=== PATIENT | female | born 1965 | race Caucasian/White ===

== ENCOUNTER 2020-02-19 15:21 | Emergency (ER) | payer BC ==
[~2020-02-19] VITALS: Ht 160 cm; Wt 78.0 kg
--- NOTE | 2020-02-19 15:40 | NUR ---
PATIENT WHEELED BACK FROM TRIAGE WITH CHIEF C/O COUGH X1 WEEK. PATIENT STATES SHE'S BEEN COUGHING AND SOB, DID NOT GO TO WORK THE LAST 2 DAYS. PATIENT WAS SEEN AT URGENT CARE TODAY, CHEST XRAY SHOWED PNEUMONIA, AND O2 SATURATION WAS <90% ON RA. CLAUDINE CINTRON, PATIENT IS 96% ON RA AT THIS TIME, CALL LIGHT WITHIN REACH.
[2020-02-19] MEDS ORDERED: CEFTRIAXONE PMX 1GM/50ML 50 ML IVPB ONE (16:30)
[2020-02-19] MEDS ORDERED: ACETAMINOPHEN 500 MG TABLET PO ONE (16:30)
[2020-02-19] MEDS ORDERED: AZITHROMYCIN 500 MG in SODIUM CHLORIDE 0.9% 250 ML IV ONE (16:30)
[2020-02-19] MEDS ORDERED: SODIUM CHLORIDE 0.9% 1,000ML IVBOLUS ONE (16:30)
[2020-02-19] MEDS ORDERED: ONDANSETRON 2MG/ML, 2ML IVPush ONE (16:30)
[2020-02-19] MEDS ORDERED: ONDANSETRON 2MG/ML, 2ML ONE (16:36)
[2020-02-19] MEDS ORDERED: ACETAMINOPHEN 500 MG TABLET ONE (16:36)
[2020-02-19] MEDS ORDERED: CEFTRIAXONE PMX 1GM/50ML 50 ML ONE (16:36)
[2020-02-19 16:39] LABS: BASOPHILS % (AUTO) 1 % (0-1); EOSINOPHILS % (AUTO) 0 % (1-7); LYMPHOCYTES % (AUTO) 19 % (22-44); MEAN CORPUSCULAR HEMOGLOBIN 28.6 pg (27.0-34.8); MEAN CORPUSCULAR HGB CONC 33.5 g/dL (32.4-35.8); MEAN PLATELET VOLUME 7.5 fL (7.4-10.4); MONOCYTES % (AUTO) 14 % (2-9); NEUTROPHILS % (AUTO) 66 % (42-75); PLATELET COUNT 210 x10^3/uL (130-400); RED BLOOD COUNT 5.08 x10^6/uL (3.82-5.3)
[2020-02-19 16:41] LABS: MD NO
[2020-02-19 16:50] LABS: ALANINE AMINOTRANSFERASE 29 U/L (12-78); ALBUMIN 3.8 g/dL (3.4-5.0); ANION GAP 10 mmol/L (5-15); CALCIUM 8.7 mg/dL (8.5-10.1); CHLORIDE 107 mmol/L (98-107); CREATININE 1.07 mg/dL (0.55-1.02)
[2020-02-19 16:53] LABS: ALKALINE PHOSPHATASE 100 U/L (45-117); BILIRUBIN,TOTAL 0.5 mg/dL (0.2-1.0); TOTAL PROTEIN 8.2 g/dL (6.4-8.2)
--- NOTE | 2020-02-19 17:03 | NUR ---
20 GAUGE IV STARTED RIGHT WRIST, PATIENT SITTING IN GURNEY, PATIENT MEDICATED PER eMAR, NADN, VSS, CALL LIGHT WITHIN REACH, WILL CONTINUE TO MONITOR.
[2020-02-19] MEDS ORDERED: DEXAMETHASONE 4 MG TABLET ONE (17:24)
[2020-02-19 17:26] VITALS: BP 130/89
[2020-02-19] MEDS ORDERED: DEXAMETHASONE 4 MG TABLET PO ONE (17:30)
--- NOTE | 2020-02-19 17:42 | NUR ---
Patient given discharge instructions and prescription and they have confirmed that they understand the instructions. Work note for patient provided, all questions answered. Patient stable and ambulatory with steady gait from ED to friend's vehicle.
== END 2020-02-19 17:43 | disposition home or self-care (01) ==
LOC: ED 17:36
DX: U07.1 COVID-19 (principal); J45.31 Mild persistent asthma with (acute) exacerbation; J12.89 Other viral pneumonia
CPT/HCPCS: 80053; 83605; 83615; 84145; 85025; 87040; 87635; 93005; 96365; 96368; 96375; 99284; J0456; J0696; J2405; J7030; J7050

== ENCOUNTER 2020-02-24 21:45 | Emergency (ER) | payer BC ==
[~2020-02-24] VITALS: Ht 160 cm; Wt 72.0 kg
[2020-02-24] MEDS ORDERED: ACETAMINOPHEN 500 MG TABLET ONE (21:53)
--- NOTE | 2020-02-24 21:56 | NUR ---
AUTOMATIC BUFFING WHEEL FORMER: medicated patient with Tylenol for fever.
[2020-02-24] MEDS ORDERED: SODIUM CHLORIDE FLUSH 10ML SYR IVF ONE (22:00)
[2020-02-24] MEDS ORDERED: SODIUM CHLORIDE 0.9% 1,000ML IVBOLUS ONE (22:00)
[2020-02-24] MEDS ORDERED: ACETAMINOPHEN 500 MG TABLET PO ONE (22:00)
[2020-02-24 22:22] LABS: BASOPHILS % (AUTO) 1 % (0-1); EOSINOPHILS % (AUTO) 0 % (1-7); LYMPHOCYTES % (AUTO) 16 % (22-44); MEAN CORPUSCULAR HEMOGLOBIN 28.1 pg (27.0-34.8); MEAN CORPUSCULAR HGB CONC 34.1 g/dL (32.4-35.8); MEAN PLATELET VOLUME 7.8 fL (7.4-10.4); MONOCYTES % (AUTO) 12 % (2-9); NEUTROPHILS % (AUTO) 71 % (42-75); PLATELET COUNT 214 x10^3/uL (130-400); RED BLOOD COUNT 4.71 x10^6/uL (3.82-5.3); RED CELL DISTRIBUTION WIDTH 13.6 % (9.6-15.2)
[2020-02-24 22:29] LABS: MD NO
[2020-02-24 22:30] LABS: ANION GAP 12 mmol/L (5-15); CALCIUM 8.5 mg/dL (8.5-10.1); CHLORIDE 100 mmol/L (98-107); CREATININE 1.08 mg/dL (0.55-1.02)
--- NOTE | 2020-02-24 23:26 | NUR ---
PRINTING SERVICES COORDINATOR: PT. TO ROOM FROM LOBBY AT THIS TIME.
--- NOTE | 2020-02-24 23:58 | NUR ---
CC OF COUGH, DIZZYNESS, DIARHHEA, SOB, AND FEVER. PT RECENTLY SEEN HERE AND POSITIVE FOR COVID. STATES SHE WAS TOLS TO COME BACK IF SHE FELT LIKE HER PXYGEN WAS LOW ON RA. PT WENT TO URGENT CARE TODAY BUT TOLD TO COME HERE INSTEAD. 96% ON RA. PT CONNECTED TO MERCHANDISING REPRESENTATIVE AND CONTINUOUS PULSE OX.
[2020-02-25] MEDS ORDERED: FILTER 0.22 MICRON IV ONE (01:00)
[2020-02-25] MEDS ORDERED: BAMLANIVIMAB 700 MG in SODIUM CHLORIDE 0.9% 180 ML IVPB ONE (01:00)
--- NOTE | 2020-02-25 02:08 | NUR ---
TASK RN: PT UP TO BSC AT THIS TIME STEADY GAIT NO ASSIST
--- NOTE | 2020-02-25 02:45 | NUR ---
late entry. pt tolerated bamlanivimab infusion well.
[2020-02-25 03:51] VITALS: BP 112/62
== END 2020-02-25 04:26 | disposition home or self-care (01) ==
LOC: ED 02-25 03:44
DX: U07.1 COVID-19 (principal); J18.9 Pneumonia, unspecified organism; R50.9 Fever, unspecified; R06.02 Shortness of breath; R05 Cough; R06.00 Dyspnea, unspecified; R00.0 Tachycardia, unspecified; R94.31 Abnormal electrocardiogram [ECG] [EKG]; J45.909 Unspecified asthma, uncomplicated
CPT/HCPCS: 36415; 71045; 80048; 85025; 93005; 96360; 99285; J7030; J7050; M0239; Q0239

== ENCOUNTER 2020-04-12 15:06 | Inpatient (IN) | payer BC ==
[~2020-04-12] VITALS: Ht 160 cm; Wt 80.8 kg
--- NOTE | 2020-04-12 15:34 | NUR ---
patch driller: EKG done in triage
--- NOTE | 2020-04-12 16:55 | NUR ---
HOTEL SERVER: PT TO ROOM FROM LOBBY VIA WHEELCHAIR
--- NOTE | 2020-04-12 17:05 | NUR ---
THIS IS A 54 YEAR OLD FEMALE WHO C/O RIGHT LEG SWELLING AND SEVERE PAIN. PT HAS A HX OF DEVT, AND PE, PT IS ON XARELTO, WAS COVID POSITIVE IN FEBRUARY 2020. PT TEARFUL, INCREASE EMOTIONAL SUPPORT GIVEN. PLACED PATIENT ON EVENING SITTER, SINSUS, CONTINOUS SP02 AT 94% RA AND CYCLE VS.
--- NOTE | 2020-04-12 17:29 | NUR ---
MEDICATED FOR 10/10 RIGHT KNEE PAIN. LAB IN ROOM, DISCUSSED PLAN OF CARE, PT VERBALIZED UNDERSTANDING, WARM BLANKET GIVEN
[2020-04-12 17:39] LABS: BASOPHILS % (AUTO) 0 % (0-1); EOSINOPHILS % (AUTO) 0 % (1-7); LYMPHOCYTES % (AUTO) 8 % (22-44); MEAN CORPUSCULAR HEMOGLOBIN 28.2 pg (27.0-34.8); MEAN CORPUSCULAR HGB CONC 33.4 g/dL (32.4-35.8); MEAN PLATELET VOLUME 7.4 fL (7.4-10.4); MONOCYTES % (AUTO) 9 % (2-9); NEUTROPHILS % (AUTO) 83 % (42-75); PLATELET COUNT 304 x10^3/uL (130-400); RED BLOOD COUNT 4.36 x10^6/uL (3.82-5.3); RED CELL DISTRIBUTION WIDTH 15.7 % (9.6-15.2)
[2020-04-12 17:41] LABS: MD NO
[2020-04-12 17:49] LABS: ANION GAP 6 mmol/L (5-15); CALCIUM 9.2 mg/dL (8.5-10.1); CHLORIDE 108 mmol/L (98-107); CREATININE 0.98 mg/dL (0.55-1.02)
--- NOTE | 2020-04-12 18:19 | NUR ---
PT STATES PAIN IS DECREASED 5/10, ICE PACK ON KNEE. PT ON PHONE VERBALIZED NO OTHER NEEDS AT THIS TIME.
[2020-04-12] MEDS ORDERED: LIDOCAINE-MPF 2% ,5ML ONE (18:36)
--- NOTE | 2020-04-12 18:50 | NUR ---
REPORT RECIEVED FROM SIGIFREDO HIGUERA. PT RESTING IN [facility], PROVIDER AT BEDSIDE
--- NOTE | 2020-04-12 18:51 | NUR ---
REPORT TO VIOLETA MEI, PLAN OF CARE DISCUSSED
[2020-04-12] MEDS ORDERED: LIDOCAINE 1%, 10ML INFIL ONE (19:00)
[2020-04-12] MEDS ORDERED: ONDANSETRON 2MG/ML, 2ML IVPush ONE (20:00)
[2020-04-12] MEDS ORDERED: MORPHINE SULFATE 4 MG/ML, 1ML IVPush PRN (20:00)
[2020-04-12] MEDS ORDERED: ONDANSETRON 2MG/ML, 2ML ONE (20:03)
[2020-04-12] MEDS ORDERED: MORPHINE SULFATE 4 MG/ML, 1ML ONE (20:03)
[2020-04-12] MEDS ORDERED: TOPI25TA52 PO (20:57)
[2020-04-12] MEDS ORDERED: ESOM40CA48 PO (20:57)
[2020-04-12] MEDS ORDERED: RIVA20TA PO (20:57)
--- NOTE | 2020-04-12 20:58 | NUR ---
medicated per emar for pain, pt on all monitors, ortho doc at bedside, no other needs at this time
--- NOTE | 2020-04-12 21:28 | NUR ---
pt resting in [facility], on the phone with family, states relief from pain at this time, call light within reach
[2020-04-12] MEDS ORDERED: CEFTRIAXONE PMX 1GM/50ML 50 ML IV ONE (22:00)
[2020-04-12] MEDS ORDERED: VANCOMYCIN 1,800 MG in SODIUM CHLORIDE 0.9% 250 ML IV ONE (22:00)
[2020-04-12] MEDS ORDERED: VANCOMYCIN PER PHARMACY MC PRN (22:00)
--- NOTE | 2020-04-12 22:08 | NUR ---
pt provided sandwich and water, ok per pt to be npo after midnight
[2020-04-12] MEDS ORDERED: CEFTRIAXONE PMX 1GM/50ML 50 ML ONE (22:13)
--- NOTE | 2020-04-12 22:29 | NUR ---
abx hung after blood cultures
[2020-04-13] MEDS ORDERED: BISACODYL 10 MG SUPP PR PRN
[2020-04-13] MEDS ORDERED: hydrALAzine 20 MG/ML, 1ML IVPush PRN
[2020-04-13] MEDS ORDERED: morphine SULFATE 10 MG/ML, 1ML IVPush PRN
[2020-04-13] MEDS ORDERED: VANCOMYCIN PER PHARMACY MC PRN
[2020-04-13] MEDS ORDERED: DOCUSATE 100 MG CAPSULE PO PRN
[2020-04-13] MEDS ORDERED: POLYETHYLENE GLYCOL 17 GM PACKET PO PRN
--- NOTE | 2020-04-13 00:16 | NUR ---
PT FEELING ITCHY AND HAVING RED RASH ON CHEST. VANCO STOPPED AT THIS TIME, CALLED DR. WICK AND LEFT MESSAGE, NO ISSUES BREATHING, WILL CONTINUE TO MONITOR AND AWAIT NEW ORDERS
[2020-04-13] MEDS ORDERED: DIPHENHYDRAMINE 50 MG/ML, 1ML ONE (00:24)
[2020-04-13] MEDS ORDERED: DIPHENHYDRAMINE 50 MG/ML, 1ML IVPush ONE (00:30)
--- NOTE | 2020-04-13 00:39 | NUR ---
pt placed on hospital bed, medicated for itchiness and redness, started vanco slower per md order.
[2020-04-13] MEDS ORDERED: PHARMACOKINETIC CONSULTATION MC ONE (01:30)
[2020-04-13] MEDS ORDERED: PHARMACOKINETIC MONITORING MC PRN (01:30)
[2020-04-13 01:45] VITALS: BP 106/52
[2020-04-13] MEDS: SODIUM CHLORIDE 0.9% 1,000 ML IV SCH ×2 (01:56→10:30)
[2020-04-13] MEDS: OXYcodone IR 5MG TABLET PO PRN ×2 (01:59→17:10)
[2020-04-13 04:35] LABS: BASOPHILS % (AUTO) 0 % (0-1); EOSINOPHILS % (AUTO) 1 % (1-7); LYMPHOCYTES % (AUTO) 27 % (22-44); MEAN CORPUSCULAR HEMOGLOBIN 28.3 pg (27.0-34.8); MEAN CORPUSCULAR HGB CONC 33.2 g/dL (32.4-35.8); MEAN PLATELET VOLUME 7.6 fL (7.4-10.4); MONOCYTES % (AUTO) 10 % (2-9); NEUTROPHILS % (AUTO) 62 % (42-75); PLATELET COUNT 275 x10^3/uL (130-400); RED BLOOD COUNT 3.88 x10^6/uL (3.82-5.3); RED CELL DISTRIBUTION WIDTH 15.9 % (9.6-15.2)
[2020-04-13 04:43] LABS: MD NO
[2020-04-13 04:47] LABS: ALANINE AMINOTRANSFERASE 23 U/L (12-78); ALBUMIN 3.1 g/dL (3.4-5.0); ANION GAP 8 mmol/L (5-15); CALCIUM 8.4 mg/dL (8.5-10.1); CHLORIDE 110 mmol/L (98-107); CHOLESTEROL, TOTAL 144 mg/dL (140-239); CREATININE 0.77 mg/dL (0.55-1.02)
[2020-04-13 04:56] LABS: ALKALINE PHOSPHATASE 72 U/L (45-117); BILIRUBIN,TOTAL 0.7 mg/dL (0.2-1.0); CHOL/HDL RATIO 3.6; HDL CHOL % 28 % (28-40); HDL CHOLESTEROL (DIRECT) 40 mg/dL (40-60); LDL CHOLESTEROL,CALCULATED 77 mg/dL (54-169); LDL/HDL RATIO 1.9 (0.5-3.0); TOTAL PROTEIN 6.9 g/dL (6.4-8.2); TRIGLYCERIDES 135 mg/dL (50-200); VLDL CHOLESTEROL 27 mg/dL (0-25)
[2020-04-13] MEDS: PANTOPRAZOLE 40MG TABLET PO SCH (07:48)
[2020-04-13 08:25] VITALS: BP 115/72
[2020-04-13 13:25] VITALS: BP 113/78
[2020-04-13] MEDS: NS + 20MEQ KCL 1,000 ML IV SCH ×2 (13:59→22:00)
[2020-04-13] MEDS ORDERED: VANCOMYCIN 1,500 MG in SODIUM CHLORIDE 0.9% 250 ML IV SCH (17:00)
[2020-04-13] MEDS ORDERED: FENTANYL PF 250 MCG/5ML ONE (17:36)
[2020-04-13] MEDS ORDERED: MIDAZOLAM 1 MG/ML, 2ML ONE (17:36)
[2020-04-13 17:50] LABS: HCG UR SG 1.019 (1.003-1.030)
[2020-04-13] MEDS ORDERED: BUPIVACAINE/PF 0.5% ONE (18:10)
[2020-04-13] MEDS ORDERED: PROPOFOL 10 MG/ML, 20ML ONE (18:22)
[2020-04-13] MEDS ORDERED: CEFAZOLIN 1,000 MG ONE (18:22)
[2020-04-13] MEDS ORDERED: MEPERIDINE/PF 25MG/0.5ML IVPush PRN (18:30)
[2020-04-13] MEDS ORDERED: OXYcodone 5 MG/5 ML ORAL.SOL UDC PO PRN (18:30)
[2020-04-13] MEDS ORDERED: DIPHENHYDRAMINE 50 MG/ML, 1ML IVPush PRN (18:30)
[2020-04-13] MEDS ORDERED: PROMETHAZINE 25 MG/ML, 1ML IVPush PRN (18:30)
[2020-04-13] MEDS ORDERED: ONDANSETRON 2MG/ML, 2ML IVPush PRN ×2 (18:30)
[2020-04-13] MEDS ORDERED: ACETAMINOPHEN 325 MG TABLET PO PRN ×2 (18:30)
[2020-04-13] MEDS ORDERED: OXYcodone 5 MG/5 ML ORAL.SOL UDC ONE (19:30)
[2020-04-13] MEDS ORDERED: FENTANYL PF 100 MCG/2ML ONE (19:30)
[2020-04-13] MEDS ORDERED: HYDROmorphone 1 MG/ML, 1ML INJ ONE (19:30)
[2020-04-13] MEDS: FENTANYL PF 100 MCG/2ML IV PRN ×2 (19:31→19:36)
[2020-04-13] MEDS ORDERED: DIAZEPAM 5 MG/ML, 2ML ONE (19:37)
[2020-04-13] MEDS: HYDROmorphone 1 MG/ML, 1ML INJ IVPush PRN ×2 (19:42→19:54)
[2020-04-13] MEDS: DIAZEPAM 5 MG/ML, 2ML IVPush PRN ×2 (19:45→20:05)
[2020-04-13 20:46] VITALS: BP_SYST 117
[2020-04-13] MEDS ORDERED: CEFTRIAXONE PMX 2GM/50ML 50 ML IVPB SCH (21:00)
[2020-04-13] MEDS ORDERED: VANCOMYCIN 1,400 MG in SODIUM CHLORIDE 0.9% 250 ML IV SCH (21:00)
[2020-04-13] MEDS ORDERED: ONDANSETRON 2MG/ML, 2ML IV PRN (21:30)
[2020-04-13] MEDS ORDERED: CEFAZOLIN PMX 2GM/50ML 50 ML IVPB SCH ×3 (21:30→22:00)
[2020-04-13] MEDS ORDERED: SODIUM CHLORIDE 0.9% 1,000 ML IV SCH ×2 (21:30)
[2020-04-13] MEDS ORDERED: HYDROcodone/APAP 5/325 TABLET PO PRN ×3 (21:30→22:00)
[2020-04-13] MEDS: TOPIRAMATE 25 MG TABLET PO SCH (21:48)
[2020-04-13] MEDS: morphine SULFATE 10 MG/ML, 1ML IV PRN (21:49)
[2020-04-14] MEDS: OXYcodone/APAP 5/325MG TABLET PO PRN ×3 (00:32→17:03)
[2020-04-14 02:35] VITALS: BP 121/72
[2020-04-14 05:08] LABS: BASOPHILS % (AUTO) 0 % (0-1); EOSINOPHILS % (AUTO) 2 % (1-7); LYMPHOCYTES % (AUTO) 21 % (22-44); MD NO; MEAN CORPUSCULAR HEMOGLOBIN 28.8 pg (27.0-34.8); MEAN CORPUSCULAR HGB CONC 33.7 g/dL (32.4-35.8); MEAN PLATELET VOLUME 7.7 fL (7.4-10.4); MONOCYTES % (AUTO) 7 % (2-9); NEUTROPHILS % (AUTO) 69 % (42-75); PLATELET COUNT 270 x10^3/uL (130-400); RED BLOOD COUNT 3.72 x10^6/uL (3.82-5.3); RED CELL DISTRIBUTION WIDTH 15.9 % (9.6-15.2)
[2020-04-14 05:18] LABS: CALCIUM 8.2 mg/dL (8.5-10.1); CHLORIDE 107 mmol/L (98-107)
[2020-04-14 05:21] LABS: ANION GAP 10 mmol/L (5-15)
[2020-04-14] MEDS ORDERED: CEFAZOLIN PMX 2GM/50ML 50 ML IVPB SCH (06:00)
[2020-04-14 07:16] VITALS: BP 123/74
[2020-04-14] MEDS: SODIUM CHLORIDE FLUSH 10ML SYR IVF SCH ×2 (09:00→19:49)
[2020-04-14] MEDS: PANTOPRAZOLE 40MG TABLET PO SCH (09:49)
[2020-04-14] MEDS: CEFTRIAXONE PMX 2GM/50ML 50 ML IVPB SCH (09:50)
[2020-04-14] MEDS: ONDANSETRON ODT 4 MG PO PRN ×2 (10:50→19:46)
[2020-04-14] MEDS: CEFAZOLIN PMX 2GM/50ML 50 ML IVPB SCH ×2 (11:06→18:32)
[2020-04-14] MEDS ORDERED: VANCOMYCIN 1,500 MG in SODIUM CHLORIDE 0.9% 250 ML IV SCH (13:00)
[2020-04-14] MEDS: NS + 20MEQ KCL 1,000 ML IV SCH (13:33)
[2020-04-14] MEDS: ONDANSETRON 2MG/ML, 2ML IVPush PRN (14:13)
[2020-04-14] MEDS: LINEZOLID PMX 600MG/300ML 300 ML IV SCH (14:31)
[2020-04-14] MEDS: morphine SULFATE 10 MG/ML, 1ML IV PRN (14:42)
[2020-04-14 15:59] VITALS: BP 132/80
[2020-04-14] MEDS ORDERED: RIVAROXABAN 20 MG TABLET PO SCH (16:30)
[2020-04-14 18:45] VITALS: BP 115/75
[2020-04-14] MEDS: TOPIRAMATE 25 MG TABLET PO SCH (19:49)
[2020-04-15 00:33] VITALS: BP 105/68
[2020-04-15] MEDS: NS + 20MEQ KCL 1,000 ML IV SCH ×2 (01:30→11:30)
[2020-04-15] MEDS: LINEZOLID PMX 600MG/300ML 300 ML IV SCH ×2 (01:41→13:57)
[2020-04-15] MEDS: OXYcodone/APAP 5/325MG TABLET PO PRN ×2 (04:37→13:55)
[2020-04-15 05:48] LABS: ANION GAP 9 mmol/L (5-15); CALCIUM 8.6 mg/dL (8.5-10.1); CHLORIDE 111 mmol/L (98-107); CREATININE 0.73 mg/dL (0.55-1.02)
[2020-04-15 07:12] LABS: BASOPHILS % (AUTO) 1 % (0-1); EOSINOPHILS % (AUTO) 3 % (1-7); LYMPHOCYTES % (AUTO) 36 % (22-44); MD NO; MEAN CORPUSCULAR HEMOGLOBIN 28.9 pg (27.0-34.8); MEAN CORPUSCULAR HGB CONC 33.7 g/dL (32.4-35.8); MEAN PLATELET VOLUME 7.9 fL (7.4-10.4); MONOCYTES % (AUTO) 9 % (2-9); NEUTROPHILS % (AUTO) 51 % (42-75); PLATELET COUNT 281 x10^3/uL (130-400); RED BLOOD COUNT 3.61 x10^6/uL (3.82-5.3); RED CELL DISTRIBUTION WIDTH 15.5 % (9.6-15.2)
[2020-04-15 07:55] VITALS: BP 130/86
[2020-04-15] MEDS: SODIUM CHLORIDE FLUSH 10ML SYR IVF SCH (09:00)
[2020-04-15] MEDS: CEFTRIAXONE PMX 2GM/50ML 50 ML IVPB SCH (09:08)
[2020-04-15] MEDS: PANTOPRAZOLE 40MG TABLET PO SCH (09:08)
[2020-04-15] MEDS: ONDANSETRON 2MG/ML, 2ML IVPush PRN (09:08)
[2020-04-15] MEDS ORDERED: CLIN600P11 PO ×2 (10:36)
[2020-04-15] MEDS ORDERED: ONDA4TAB13 SL (10:41)
[2020-04-15] MEDS ORDERED: OXYC1TAB14 PO (10:42)
[2020-04-15] MEDS ORDERED: CLIN300C9 PO (12:53)
[2020-04-15 13:08] VITALS: BP 123/78
== END 2020-04-15 14:46 | disposition home health service (06) | DRG 853 ==
LOC: ED 17:57 → EDIP 21:55 → 4NE 04-13 01:21 → DCLOUNGE 04-15 14:38
PROVIDERS: ADMIT Internal Medicine; ATTEND Internal Medicine
PROC: 0S9C4ZZ Drainage of Right Knee Joint, Percutaneous Endoscopic Approach (ICD-10-PCS; 2020-04-13)
PROC: 0SJC4ZZ Inspection of Right Knee Joint, Percutaneous Endoscopic Approach (ICD-10-PCS; 2020-04-13)
PROC: 0SBC4ZZ Excision of Right Knee Joint, Percutaneous Endoscopic Approach (ICD-10-PCS; principal; 2020-04-13 17:30)
DX: A41.9 Sepsis, unspecified organism (principal); I26.99 Other pulmonary embolism without acute cor pulmonale; M00.9 Pyogenic arthritis, unspecified; J96.10 Chronic respiratory failure, unspecified whether with hypoxia or hypercapnia; Z20.822 Contact with and (suspected) exposure to COVID-19; G43.909 Migraine, unspecified, not intractable, without status migrainosus; K29.70 Gastritis, unspecified, without bleeding; T36.8X5A Adverse effect of other systemic antibiotics, initial encounter; Z86.16 Personal history of COVID-19; M79.89 Other specified soft tissue disorders; Z86.711 Personal history of pulmonary embolism; Z86.718 Personal history of other venous thrombosis and embolism; Z79.01 Long term (current) use of anticoagulants; Z79.899 Other long term (current) drug therapy; Z79.891 Long term (current) use of opiate analgesic; Z98.891 History of uterine scar from previous surgery; Z88.8 Allergy status to other drugs, medicaments and biological substances; Z91.041 Radiographic dye allergy status
CPT/HCPCS: 36415; 73564; 89050; 89060; 96374; 96375; 99285; S0020; 80048; 80053; 80061; 81025; 83036; 83735; 84100; 84443; 85025; 85810; 86140; 87040; 87070; 87075; 87205; 87635; 93005; G0378; J0690; J0696; J1170; J2020; J2250; J2405; J2704; J3010; J3360; J3370; J3480; Q0162; J1200; J2270; J7030; J7050

== ENCOUNTER → 2020-06-02 | Outpatient (CLI) | payer BC ==
[~2020-06-02] MED LIST: CLIN300C9 PO; CLIN600P11 PO; ESOM40CA48 PO; ONDA4TAB13 SL; OXYC1TAB14 PO; REGADENOSON 0.4 MG/5 ML SYRINGE ONE; RIVA20TA PO; TOPI25TA52 PO
== END | disposition home or self-care (01) ==
LOC: CVU 10:31
PROVIDERS: ATTEND Internal Medicine Cardiovascular Disease
DX: I35.8 Other nonrheumatic aortic valve disorders (principal); R94.31 Abnormal electrocardiogram [ECG] [EKG]; Z86.16 Personal history of COVID-19
CPT/HCPCS: 78452; 93017; 93306; 93356; A9502; J2785

== ENCOUNTER → 2020-10-07 | Outpatient (CLI) | payer MEDICAID ==
[~2020-10-07] MED LIST changes: -REGADENOSON 0.4 MG/5 ML SYRINGE ONE
== END | disposition home or self-care (01) ==
LOC: RAD 14:19
PROVIDERS: ATTEND Physician Assistant
DX: K44.9 Diaphragmatic hernia without obstruction or gangrene (principal); R10.13 Epigastric pain; Z90.49 Acquired absence of other specified parts of digestive tract
CPT/HCPCS: 74150